=== PATIENT | female | born 1980 | race Hispanic/Latino ===

== ENCOUNTER 2023-10-29 17:09 | Emergency (ER) | payer OTHER, SELFPAY ==
[2023-10-29 17:29] VITALS: BP 141/90; PULSE 62; RESP 16; TEMP 37.1; O2SAT 99; BMI 30.9
--- NOTE | 2023-10-29 17:34 | DI.RAD.S_ITS ---
PROCEDURE: XR HAND LT MIN 3V INDICATIONS: smashed L ring finger, laceration TECHNIQUE: 3 views of the hand(s) acquired. COMPARISON: None. FINDINGS: Bones: Mildly displaced and comminuted distal tuft fracture. Soft tissues: No suspicious calcifications. Bandaging material in place. IMPRESSION: Mildly displaced and comminuted 4th distal tuft fracture. Correlate with clinical exam for nail bed injury. Dictated by: Abdirahman Godoy M.D. on 10/29/2023 at 18:01 Approved by: Abdirahman Godoy M.D. on 10/29/2023 at 18:02
[2023-10-29 20:32] VITALS: BP 147/95; PULSE 75; RESP 16; O2SAT 100
--- NOTE | 2023-10-29 21:00 | PC.NURSE ---
Pts wound irrigated w 500mL of NS and cleaned w hibiclens. Pt tolerated appropriately.
--- NOTE | 2023-10-29 21:45 | ED_ITS ---
HPI - Wound/Laceration General Chief Complaint: Wound/Laceration Stated Complaint: lt ring finger injury/lac Time Seen by Provider: 10/29/23 20:22 Source: patient Mode of arrival: Family Vehicle History of Present Illness HPI narrative: Otherwise healthy 43-year-old woman was at work and caught her left ring finger in a machine causing a crush injury to the distal phalanx. There is a laceration, a subungual hematoma and concern for underlying fracture. No other injuries or concerns today Related Data Previous Rx's Medication Instructions Recorded cephalexin 500 mg capsule 500 mg PO TID #15 caps 10/29/23 Allergies Allergy/AdvReac Type Severity Reaction Status Date / Time No Known Drug Allergies Allergy Verified 10/29/23 21:55 Review of Systems Review of Systems Narrative: Pertinent positive and negative findings as per HPI Exam Initial Vital Signs Initial Vital Signs: Vital Signs Temperature 98.7 F 10/29/23 17:29 Pulse Rate 62 10/29/23 17:29 Respiratory Rate 16 10/29/23 17:29 Blood Pressure 141/90 H 10/29/23 17:29 Pulse Oximetry 99 10/29/23 17:29 Oxygen Delivery Method Room Air 10/29/23 17:29 General: Alert appropriate in no acute distress Respiratory: Able to speak in full sentences, no obvious respiratory distress Skin: No obvious rashes, warm and dry Neurologic: Grossly intact no obvious asymmetries or abnormalities Psych: appropriate insight and affect, cooperative Extremity: Left middle finger distal phalanx is swollen, there is a contusion on the pad, there is a small subungual hematoma that does look like it involves the nail bed, there is a laceration over the distal portion of the fingertip and moderate amount of swelling. No bony debris is appreciated as laceration is cleaned and repaired. She is neurovascularly intact. Procedures Laceration Repair left distal ring finger: Time of procedure: 22:27 Site: hand Side (If applicable): left Size (cm): 2 Description: linear Depth: simple, single layer Local Anesthetic: lidocaine 1% Amount of anesthesia used (mL): 4 Pre-repair: wound explored and irrigated extensively Skin layer closed with: nylon Skin layer suture size: 3-0 Number of sutures: 4 Technique: simple, interrupted (The wound was dressed with antibiotic ointment and a Band-Aid. Aluminum finger splint was placed over the tip of the finger. Patient is neurovascularly intact) Course Orders Ordered: Discontinued Medications Bacitracin (Bacitracin Oint 0.9 Gm Pckt) 1 applic TOP NOW ONE Stop: 10/29/23 21:49 Last Admin: 10/29/23 22:50 Dose: 1 applic Documented By: CHIQUIS Diphtheria/Tetanus/Acell Pertussis (Tet,Diph,Pertuss(Acell),Vac/Pf 0.5 Ml Syringe) 0.5 ml IM .ONCE ONE Stop: 10/29/23 21:49 Last Admin: 10/29/23 21:57 Dose: 0.5 ml Documented By: CHIQUIS Lidocaine HCl (Lidocaine 1% 20 Ml) 20 ml INJ INTRA-OP ONE Stop: 10/29/23 21:49 Oxycodone/Acetaminophen (Oxycodone/Apap 5/325 Prepack) 1 bottle MISC DIRECTED ONE Stop: 10/29/23 22:35 Last Admin: 10/29/23 22:49 Dose: 1 bottle Documented By: CHIQUIS Vital Signs Vital signs: Vital Signs - 8 hr 10/29/23 20:32 10/29/23 22:52 Pulse Rate 75 73 Respiratory Rate 16 16 Blood Pressure 147/95 H 149/99 H Pulse Oximetry 100 98 Oxygen Delivery Method Room Air Room Air MDM - Wound/Laceration MDM Narrative Medical decision making narrative: CC: Left ring finger crush injury to the tip of the finger. Complicating co-morbidities: L and I injury Data collected from: patient Differential considered: Contusion, laceration, fracture, amputation Exam documented above, pertinent findings include: Fingertip is tender, slightly swollen, contusion to the pad and under the nail bed. Laceration vertically over the tip of the finger. Distal nail bed is not involved in fingernail is left in place Imaging studies independently reviewed: Mildly displaced and comminuted 4th distal tuft fracture. Treatments: Ibuprofen and Tylenol. She is sent home with Percocet prepack Tdap is updated She will start Keflex orally Wound is repaired Aluminum fingertip splint is placed to protect the tip itself from further injury Re-evaluations: Discussion: 43-year-old woman with a crush injury to the tip of her left ring finger. I suspect that a new nail will grow out and displace the current nail. There was no indication for subungual drainage. Laceration to the tip of the finger is repaired with 4 single interrupted sutures. Discussed anticipated course of resolution. Because this is an open fracture she will need to complete a course of antibiotics. Because it does fingertip and a crush injury I do anticipate a moderate amount of pain and she is given a couple of doses of Percocet to take with both ibuprofen and Tylenol will need definitive treatment with Orthopedics for eventual medical clearance. Initial L and I forms were filled out with recommendations for light duty that includes anything she can do as long as the left ring finger can stay in the splint. Discharge Plan Departure Patient Disposition: Home Clinical Impression: Laceration, Open fracture of tuft of distal phalanx of finger Instructions: DI for Laceration Repair, DI for Finger Fracture, Tetanus, Diphtheria, Pertussis (Tdap) Vaccine Activity Restrictions/Additional Instructions: Thank you for coming in today You did break the very tip of your finger and have a laceration over that fracture. This makes it an open fracture and you do need to complete 5 full days of antibiotics, cephalexin. I have given you a prescription for this. Use some antibiotic ointment and a Band-Aid over the wound itself and then the aluminum splint over that so that you are not causing more pain to the tip of your finger The fracture is going to heal nicely without any additional intervention The stitches to the tip of your finger need to come out on or about November 07. You can come back to the emergency department, go to urgent care or see your regular doctor to have the stitches removed. If you notice increasing redness, drainage, pain or any odor, this is not normal and does need to be re-evaluated If you find that you are fingernail is not growing, a new 1 maybe growing underneath it and will push the old 1 off when it is almost fully grown. This should not be painful. If her fingernail is growing, than you did not do significant damage to the nail bed. You are going to hurt and more over the next 24-48 hours. Using 400 mg of ibuprofen (2 [id number] pills) and 1 Tylenol every 6 hours can be very helpful in controlling pain. For severe pain you can use 400 mg of ibuprofen and 1 Percocet. Percocet has narcotic in it and can make you very constipated, please make sure you were also taking a stool softener, eating extra fruit and drinking plenty of water. If they concur as throbbing, keep it elevated over the level of your heart I have filled out your L and I paperwork. I have recommended light duty to include whatever you are able to do as long as the finger splint stays in place. You will need to follow up with 1 of our orthopedic surgeons for definitive treatment and to make sure that things are healing well. Please call [facility] at [phone] to schedule an appointment within the next week. Please explain you are in the emergency department and have an open finger tuft fracture If you find that you are getting worse or develop any new symptoms, please feel free to return to the emergency department for further evaluation. Prescriptions: New cephalexin 500 mg capsule 500 mg PO TID Qty: 15 0RF Stand Alone Forms: Patient Portal/API
[2023-10-29] MEDS: TET,DIPH,PERTUSS(ACELL),VAC/PF 0.5 ML SYRINGE IM (21:57)
--- NOTE | 2023-10-29 22:45 | PC.NURSE ---
Abx cream, gauze and finger splint applied to pts finger.
[2023-10-29] MEDS: OXYCODONE/APAP 5/325 PREPACK 1 BOTTLE MISC (22:49)
[2023-10-29] MEDS: BACITRACIN OINT 0.9 GM PCKT 1 APPLIC TOP (22:50)
[2023-10-29 22:52] VITALS: BP 149/99; PULSE 73; RESP 16; O2SAT 98
== END 2023-10-29 22:56 | disposition home or self-care (01) ==
PROVIDERS: Emergency Provider Emergency Medicine
DX: S61.215A Laceration without foreign body of left ring finger without damage to nail, initial encounter (principal); S62.635A Displaced fracture of distal phalanx of left ring finger, initial encounter for closed fracture; W23.0XXA Caught, crushed, jammed, or pinched between moving objects, initial encounter; Z23 Encounter for immunization
CPT/HCPCS: 12001; 73130; 90471; 99283; 99284; 90715